=== PATIENT | female | born 1945 | race Caucasian/White ===

== ENCOUNTER → 2016-05-18 | Outpatient (CLI) | payer OTHER ==
[2016-05-18 13:05] LABS: ESTIMATED AVERAGE GLUCOSE 120 mg/dl; HA1C FLAG Normal (Normal)
[2016-05-18 13:06] LABS: BLOOD UREA NITROGEN 15 mg/dl (7-18); BUN/CREATININE RATIO 16.8 (10-20); CALCIUM 9.2 mg/dl (8.5-10.1); CARBON DIOXIDE 28 mmol/L (21-32); CHLORIDE 107 mmol/L (98-107); CREATININE 0.88 mg/dl (0.60-1.20); GLUCOSE 131 mg/dl (70-99); POTASSIUM 3.7 mmol/L (3.5-5.1); SODIUM 144 mmol/L (136-145)
== END | disposition home or self-care (01) ==
LOC: C.LABPBG 09:07
PROVIDERS: ATTEND Family Medicine
DX: I10 Essential (primary) hypertension (principal); R73.01 Impaired fasting glucose; E55.9 Vitamin D deficiency, unspecified

== ENCOUNTER → 2016-06-18 | Outpatient (CLI) | payer OTHER ==
--- NOTE | 2016-06-18 16:35 | MAMMOGRAPHY REPORT ---
BILATERAL DIGITAL SCREENING MAMMOGRAM WITH CAD: 06/18/2016 CLINICAL HISTORY: Asymptomatic. History of right breast cancer status post right mastectomy with im plant reconstruction. Also with left breast implant. TECHNIQUE: Current study was also evaluated with a Computer Aided Detection (CAD) system. Bilatera l CC and MLO views including implant displaced views were obtained. COMPARISON: Comparison is made to exams dated: 06/03/2015 mammogram, 05/14/2014 mammogram, 02/09/2013 mammogram, 02/09/2012 mammogram, 02/02/2011 mammogram, and 01/30/2010 mammogram - [facility]. BREAST COMPOSITION: The tissue of both breasts is almost entirely fatty. FINDINGS: No suspicious masses, calcifications, or areas of architectural distortion are noted in t he left breast or right mastectomy bed. There has been no significant interval change compared to p rior exams. Bilateral subpectoral silicone implants are stable in appearance. Scattered bilateral benign-appearing calcifications are not significantly changed. Status post right mastectomy. IMPRESSION: ACR BI-RADS CATEGORY 2: BENIGN There is no mammographic evidence of malignancy. A 1 year screening mammogram is recommended. The pa tient will receive written notification of the results. Approximately 10% of breast cancers are not detected with mammography. A negative mammographic repor t should not delay biopsy if a clinically suggestive mass is present. Dayan Perez M.D. ah/:06/18/2016 13:48:16 Manager Social Media: Leonid GALEANO(Aj)(Cam), [facility] letter sent: Normal 1/2 BI-RADS Code: ACR BI-RADS Category 2: Benign
== END | disposition home or self-care (01) ==
LOC: C.MAMM 11:44
PROVIDERS: ATTEND Family Medicine
DX: Z12.31 Encounter for screening mammogram for malignant neoplasm of breast (principal); Z85.3 Personal history of malignant neoplasm of breast

== ENCOUNTER → 2016-06-18 | Outpatient (CLI) | payer OTHER | END | disposition home or self-care (01) | LOC: C.MAMM 11:45 | PROVIDERS: ATTEND Family Medicine | DX: M85.851 Other specified disorders of bone density and structure, right thigh (principal); M85.852 Other specified disorders of bone density and structure, left thigh; Z85.3 Personal history of malignant neoplasm of breast; Z12.31 Encounter for screening mammogram for malignant neoplasm of breast ==

== ENCOUNTER → 2016-12-18 | Outpatient (CLI) | payer OTHER ==
[2016-12-18 13:17] LABS: BLOOD UREA NITROGEN 16 mg/dl (7-18); BUN/CREATININE RATIO 18.9 (10-20); CALCIUM 8.7 mg/dl (8.5-10.1); CARBON DIOXIDE 27 mmol/L (21-32); CHLORIDE 108 mmol/L (98-107); CREATININE 0.83 mg/dl (0.60-1.20); GLUCOSE 123 mg/dl (70-99); POTASSIUM 3.5 mmol/L (3.5-5.1); SODIUM 143 mmol/L (136-145)
[2016-12-18 13:27] LABS: CHOLESTEROL 165 mg/dl (0-200); CHOLESTEROL/HDL RATIO 2.4; HDL CHOLESTEROL 68 mg/dl; LDL CHOLESTEROL CALCULATED 82 mg/dl; TRIGLYCERIDES 73 mg/dl (0-150); VERY LOW DENSITY LIPOPROT CALC 15 mg/dl
[2016-12-18 14:18] LABS: ESTIMATED AVERAGE GLUCOSE 105 mg/dl; HA1C FLAG Normal (Normal)
== END | disposition home or self-care (01) ==
LOC: C.LABPBG 09:38
PROVIDERS: ATTEND Family Medicine
DX: I10 Essential (primary) hypertension (principal); E55.9 Vitamin D deficiency, unspecified; Z85.3 Personal history of malignant neoplasm of breast; R73.01 Impaired fasting glucose

== ENCOUNTER → 2017-06-16 | Outpatient (CLI) | payer OTHER ==
[2017-06-16 13:15] LABS: HEMATOCRIT 39.6 % (37-47); HEMOGLOBIN 13.6 g/dL (12.0-16.0); MEAN CELL VOLUME 99.7 fL (80-100); MEAN CORPUSCULAR HEMOGLOBIN 34.3 pg (25-34); MEAN CORPUSCULAR HGB CONC 34.3 g/dl (32-36); MEAN PLATELET VOLUME 10.8 fL (7.4-10.4); PLATELET COUNT 191 K/uL (130-400); RED CELL DISTRIBUTION WIDTH CV 13.3 % (11.5-14.5); RED CELL DISTRIBUTION WIDTH SD 48.7 fL (36.4-46.3); WHITE BLOOD COUNT 4.07 K/uL (4.8-10.8)
[2017-06-16 13:36] LABS: BLOOD UREA NITROGEN 20 mg/dl (7-18); CARBON DIOXIDE 27 mmol/L (21-32); CREATININE 0.89 mg/dl (0.60-1.20); GLUCOSE 111 mg/dl (70-99); POTASSIUM 3.8 mmol/L (3.5-5.1); SODIUM 139 mmol/L (136-145)
== END | disposition home or self-care (01) ==
LOC: C.LABPBG 09:08
PROVIDERS: ATTEND Family Medicine
DX: I10 Essential (primary) hypertension (principal); M85.80 Other specified disorders of bone density and structure, unspecified site; R73.01 Impaired fasting glucose; E55.9 Vitamin D deficiency, unspecified

== ENCOUNTER → 2017-06-25 | Outpatient (CLI) | payer OTHER ==
--- NOTE | 2017-06-28 07:48 | MAMMOGRAPHY REPORT ---
UNILATERAL LEFT DIGITAL SCREENING MAMMOGRAM TOMOSYNTHESIS WITH CAD: 06/25/2017 CLINICAL HISTORY: Asymptomatic. Personal history of breast cancer. TECHNIQUE: Breast tomosynthesis in addition to standard 2D mammography was performed. Current study was also evaluated with a Computer Aided Detection (CAD) system. COMPARISON: Comparison is made to exams dated: 06/18/2016 mammogram, 06/03/2015 mammogram, 05/14/2014 ma mmogram, 02/09/2013 mammogram, 02/09/2012 mammogram, and 02/02/2011 mammogram - [facility]. BREAST COMPOSITION: The tissue of the left breast is almost entirely fatty. FINDINGS: There are no suspicious masses, calcifications, or areas of architectural distortion noted within the left breast. There has been no significant interval change compared to prior exams. A hannah bpectoral silicone implant is stable in appearance. Scattered benign-appearing calcifications are no t significantly changed. IMPRESSION: ACR BI-RADS CATEGORY 2: BENIGN There is no mammographic evidence of malignancy in the left breast. A 1 year screening mammogram is r ecommended. The patient will receive written notification of the results. Approximately 10% of breast cancers are not detected with mammography. A negative mammographic report should not delay biopsy if a clinically suggestive mass is present. Dayan Perez M.D. ah/:06/25/2017 14:28:04 Varnish Filterer: Leonid GALEANO(Aj)(M), [facility] letter sent: Normal 1/2 BI-RADS Code: ACR BI-RADS Category 2: Benign
== END | disposition home or self-care (01) ==
LOC: C.MAMM 13:19
PROVIDERS: ATTEND Family Medicine
DX: Z12.31 Encounter for screening mammogram for malignant neoplasm of breast (principal); Z85.3 Personal history of malignant neoplasm of breast

== ENCOUNTER 2020-10-29 06:37 | Observation (INO) ==
--- NOTE | 2020-10-11 14:54 | PAT Medication Instructions ---
Medication Instructions Date of Service October 11, 2020 Home Medications atenolol 25 mg tablet 25 mg PO QAM atenolol 50 mg tablet 50 mg PO QAM cholecalciferol (vitamin D3) 25 mcg (1,000 unit) capsule (Vitamin D3) 25 mcg PO QAM raloxifene 60 mg tablet 60 mg PO QAM spironolactone 25 mg-hydrochlorothiazide 25 mg tablet 1 tab PO QAM vitamins A,C,L-kqjy-hyhiti 14,320 unit-226 mg-200 unit capsule (PreserVision AREDS) 1 cap PO QAM ASK your prescriber and surgeon raloxifene 60 mg tablet 60 mg PO QAM STOP taking 2 weeks before surgery (or as soon as possible if surgery is within 2 weeks) vitamins A,C,E-pztr-vuoqcq 14,320 unit-226 mg-200 unit capsule (PreserVision AREDS) 1 cap PO QAM DO NOT take the morning of surgery cholecalciferol (vitamin D3) 25 mcg (1,000 unit) capsule (Vitamin D3) 25 mcg PO QAM spironolactone 25 mg-hydrochlorothiazide 25 mg tablet 1 tab PO QAM Take morning of surgery With a small sip of water, OTHERWISE NOTHING TO EAT OR DRINK AFTER MIDNIGHT: atenolol 25 mg tablet 25 mg PO QAM atenolol 50 mg tablet 50 mg PO QAM Other Notes If you have any questions please call us at [phone] or [phone] or [phone] or [phone]
--- NOTE | 2020-10-16 09:47 | Anesthesiology Consultation ---
Date of Service October 16, 2020 Assessment & Plan (1) Encounter for pre-operative examination: Chart Review Chart Review: Acceptable Risk for Surgery (pending preop Covid testing results ) and Patient seen in Pre Admission Testing Per PAT appt on 10/16/20, patient denies any recent travel or large group activities. No known Covid positive contacts or Covid related symptoms. No known Covid infection in the past 90 days. Pt is vaccinated for Covid. Preop Covid testing scheduled 10/25/20= will await results. Educated on importance of self quarantining, social distancing and wearing mask in public for the patient one week prior to surgery and after Covid testing done Teaching & Discussion Pre-Anesthesia Teaching/Discussion Notes: Instructed NPO after midnight before surgery,except medications with 15 cc of water. Medication instructions provided according to the [facility] guidelines. History Surgery Operation Date: 10/29/20 08:50 Proposed Procedures p Right Total Hip Arthroplasty - Porfirio Bustillo MD Height/Weight Height: 5 ft 4 in Weight: 72.2 kg Allergies Allergy/AdvReac Type Severity Reaction Status Date / Time No Known Allergies Allergy Verified 10/09/20 11:52 Medications Home Medications Medication Instructions Recorded Confirmed Last Taken atenolol 25 mg tablet 25 mg PO QAM 10/09/20 10/09/20 Unknown atenolol 50 mg tablet 50 mg PO QAM 10/09/20 10/09/20 Unknown cholecalciferol (vitamin D3) 25 25 mcg PO QAM 10/09/20 10/09/20 Unknown mcg (1,000 unit) capsule (Vitamin D3) raloxifene 60 mg tablet 60 mg PO QAM 10/09/20 10/09/20 Unknown spironolactone 25 1 tab PO QAM 10/09/20 10/09/20 Unknown mg-hydrochlorothiazide 25 mg tablet vitamins A,C,Q-fwzk-tqxcoo 14,320 1 cap PO QAM 10/09/20 10/09/20 Unknown unit-226 mg-200 unit capsule (PreserVision AREDS) Past Medical History Medical History History of breast cancer Rt breast 1980s - right mastectomy + chemo No limb restrictions No current issues Hypertension Impaired fasting glucose Hgb A1C 5.7 on 07/01/20 Osteoarthritis Osteopenia Exercise / Class Metabolic Activity III < 4 Walking/Shop/Light housework (one flight of stairs - no chest pain or SOB - goes slow secondary to hip pain ) Past Family History Family History Mother Dementia Grandmother (Maternal) Breast cancer Father Cancer Other No family history of adverse response to anesthesia Denies family history of Ovarian cancer Prostate cancer Myocardial infarction Colorectal cancer Past Surgical History Surgical History History of bilateral breast implants History of breast biopsy S/P right mastectomy (1979) Past Anesthesia History No Hx of Anesthesia Complications and No Family Hx of Anesthesia Complications History of PONV No Hx of PONV and No Hx of Motion Sickness Social History Smoking Status: Never smoker Do You Dip or Chew Tobacco: No Hx Alcohol Use: Yes Alcohol type: wine alcohol intake frequency: a few times a month Hx Substance Use: No substance use type: does not use Review of Systems Patient denies chest pain, shortness of breath, dyspnea on exertion, reflux, cough, wheezing, palpitations. No hx of seizures, stroke, SC, apnea/snoring. No hx of blood clots or blood transfusions Physical Exam Vital Signs VITALS BP 139/80 P 60 TEMP 98.1 SP02 98% RESP 16 Constitutional no acute distress ENMT Mouth: no TMJ clicking Thyromental Distance: > or= 3.5 Finger Breadths (3.5) Mallampati Class: III Full dentures on top and bottom Neck neck extension not limited Respiratory normal respiratory effort; no respiratory distress Auscultation: lungs clear to auscultation bilaterally; no wheezes Cardiovascular Rate/Rhythm: regular rate and regular rhythm Heart Sounds: no murmur Vessels: no carotid bruit Musculoskeletal Spine: no pain with cervical ROM Extremities: extremities normal to inspection Psychiatric Orientation: alert Lab Results Anesthesia Preop Results Results Anesthesia Widget: WBC 3.95 K/uL (4.8-10.8) L 10/16/20 Hgb 13.3 g/dL (12.0-16.0) 10/16/20 Hct 38.2 % (37-47) 10/16/20 Plt 163 K/uL (130-400) 10/16/20 Na 140 mmol/L (136-145) 10/16/20 K 3.9 mmol/L (3.5-5.1) 10/16/20 Cl 111 mmol/L (98-107) H 10/16/20 CO2 22 mmol/L (21-32) 10/16/20 BUN 16 mg/dl (7-18) 10/16/20 Creat 0.74 mg/dl (0.6-1.2) 10/16/20 Glucose Level 119 mg/dl (70-99) H 10/16/20 PT 10.4 Seconds (9.0-12.0) 10/16/20 PTT 24.5 Seconds (21.0-31.0) 10/16/20 INR 1.0 (0.9-1.1) 10/16/20 Blood Type AB Positive 10/16/20 Antibody Screen NEGATIVE 10/16/20 Testing Electrocardiogram Date: 10/16/20 Findings: + SB @ (57bpm) Incomplete RBBB. Chest X-Ray Date: 10/16/20 Minimal atelectasis or scarring at the left base. No large infiltrates or consolidative lesions. Mild diffuse prominence of pulmonary interstitium is seen bilaterally and could be chronic.
[~2020-10-29 06:37] MED LIST: ACETAMINOPHEN 500 MG TAB PO SCH; BUPIVACAINE 0.5 % 5 MG/1 ML PF 10ML VIAL ONE; FAMOTIDINE 20 MG TAB PO SCH; GABAPENTIN 300 MG CAP PO SCH; LR 500ML BOLUS, THEN 15ML/HR IV SCH; LR 60ML/HR IV SCH; METOCLOPRAMIDE HCL 10 MG TABLET PO SCH; MIDAZOLAM HCL 1 MG/ML 2ML VIAL ONE; MoRPHine SULFATE PF 1 MG/ML 10 ML AMP/VIAL ONE; TRANEXAMIC ACID 1,000 MG **IV Pre-op IV SCH; ceFAZolin 2000MG 2,000 MG/15 ML SYR IV SCH; fentaNYL citrate 100 MCG/2 ML VIAL ONE
--- NOTE | 2020-10-29 06:56 | History & Physical Bridge Note ---
Date of Service October 29, 2020 History & Physical Bridge Note I have examined the patient, reviewed the History & Physical and in the interval since the performance of the History & Physical I have noted the following changes of clinical significance: no changes noted
[2020-10-29] MEDS ORDERED: BUPIVACAINE 0.5 % 5 MG/1 ML MPF 30ML VIAL ONE (08:24)
[2020-10-29] MEDS ORDERED: EPINEPHrine INJ 1 MG/ML AMP ONE (08:24)
[2020-10-29] MEDS ORDERED: NALBUPHINE HCL INJ 10 MG/ML AMP IV PRN (08:49)
[2020-10-29] MEDS ORDERED: MoRPHine SULFATE PF 1 MG/ML 10 ML AMP/VIAL INT SPINAL ONE (08:49)
[2020-10-29] MEDS ORDERED: PROMETHAZINE HCL 25 MG in SODIUM CHLORIDE 0.9% 50 ML IV PRN (08:49)
[2020-10-29] MEDS ORDERED: NALOXONE HCL 0.08 MG in SYRINGE 1.8 ML IV PRN (08:49)
[2020-10-29] MEDS ORDERED: diphenhydrAMINE 50 MG/ML VIAL IV PRN (08:49)
[2020-10-29] MEDS ORDERED: ePHEDrine sulfate 50 MG/ML AMP IV PRN (08:49)
[2020-10-29] MEDS ORDERED: LACTATED RINGER'S 500 ML IV PRN (08:49)
[2020-10-29] MEDS ORDERED: NALOXONE HCL 0.4 MG/1 ML VIAL/CARP IV PRN (08:49)
[2020-10-29] MEDS ORDERED: ONDANSETRON INJ 2 MG/ML 2 ML VIAL IV PRN (08:49)
[2020-10-29] MEDS ORDERED: NALOXONE HCL 1 MG in SODIUM CHLORIDE 0.9% 1000ML 1,000 ML IV PRN (08:49)
[2020-10-29] MEDS ORDERED: PROPOFOL IV EMULSION 10 MG/ML 20 ML VIAL IV ONE (08:58)
[2020-10-29] MEDS ORDERED: ePHEDrine sulfate 50 MG/ML SYR ONE (09:00)
[2020-10-29] MEDS ORDERED: NO NARCOTICS OR SEDATIVES SCH (09:00)
[2020-10-29] MEDS ORDERED: DC INTRASPINAL MORPHINE SCH (09:00)
[2020-10-29] MEDS ORDERED: SODIUM CHLORIDE 0.9% 1000ML 1,000 ML IV SCH (09:00)
[2020-10-29] MEDS ORDERED: PHENYLEPHRINE 100MCG/ML 5ML SYR ONE (09:05)
--- NOTE | 2020-10-29 10:24 | Operative Report ---
Post Operative Report Pre & Post Diagnosis Operation Date: 10/29/20 08:20 Pre-Op Diagnosis: Right Hip Osteoarthritis Post-Op Diagnosis: Right Hip Osteoarthritis I identified the patient and participated in the time-out.: Yes Procedure Operation Date: 10/29/20 08:20 Actual Procedures p Right Total Hip Arthroplasty(Right) - Porfirio Bustillo MD Surgeon Porfirio Bustillo MD Farm Marketer Shashi Pablo PA-C Estimated Blood Loss 200 Findings Consistent with Post-Op Diagnosis Operative findings revealed advanced right hip DJD. She had grade 4 [id number] disease of the femoral head and acetabulum. Moderate-sized joint effusion and some moderate synovitis. Not a lot of osteophyte formation. Fluids 1000 cc Specimens Right femoral head sent for pathology. Drains None. Anesthesia Type Spinal MAC Complications none Disposition Accompanied Patient To Recovery: Yes Indications Patient is 75-year-old independent female has had a several year history of increasing right hip pain and discomfort got secondarily worse over the past year the part that she has had to resort to using a cane to get around. X-rays show advanced right hip DJD. She elected proceed with surgical treatment. Description of Procedure Operative implants consist of: 1. Biomet G7 size 50 mm acetabular shell. 2. [place] hole safety tech. 3. 6.5 cancellous acetabular screws 135 mm length and 1 to 20 mm length. 4. Highly cross-linked polyethylene liner with a 50 mm outer diameter and 36 mm inner diameter. 5. Daniel Corail size 11 KLA femoral stem. 6. +1.5/36 mm ceramic articular ball. The patient was taken to the operating, identified, placed on the operating table supine position but all contractors were properly padded. IV antibiotics tried by anesthesia team. Spinal anesthetic had been implemented in the holding area. Devries catheter was placed in sterile fashion. Patient was then placed in the left lateral decubitus position. Axillary roll was placed. A Stulberg hip positioner was used for positioning. The right hip and leg were then prepped and draped in usual sterile fashion. A posterior lateral approach to the right hip was then performed to a curvilinear incision centered over the greater trochanter. Sharp dissection was carried through subcutaneous tissue down to the IT band gluteal fascia the IT band gluteal fascia were incised longitudinally in line with skin incision. The underlying greater bursa was excised. The piriformis and external rotators were tagged and taken off the posterior aspect of the hip joint capsule. Great care was taken throughout the procedure protect the sciatic nerve at all times. Posterior capsulotomy was then performed leaving a large flap for later repair. Hip was internally rotated and dislocated. A femoral neck osteotomy cut was made with Final Cut approximately 10 mm above the lesser trochanter. Femoral head was removed and sent for pathology. The femur was retracted anteriorly. Attention drawn the acetabulum. The acetabular labrum was excised. The pulvinar fat was excised. Sequential reaming the acetabular was then performed begin with size 43 and progressing up to 49. I reamed just a little bit with a 50 reamer and then placed a 50 mm Biomet G7 acetabular cup in about 40 degrees lateral opening and 20 degrees of anteversion. It was fixed with two 6.5 cancellous acetabular screws. Trial liner was placed. Attention drawn the femur. The proximal femur was entered with a cookie-cutter followed by canal finder. I then broached beginning with size 8 and progressing up to 11. Got excellent fit at 11. Due to the good fit and the pretty good cancellous bone we elected not use a cemented implant. Calcar reamer was used smooth and off the calcar. Then trialed the hip. The +1.5/36 mm ceramic articular ball provide full stability in full extension and external rotation flexion to 9 degrees internal rotation over 50 degrees. Leg lengths seem equal and soft tissue tension was appropriate. Attention drawn to place the permanent components. All trial components were removed. An apex hole safety tech was placed. Highly cross-linked polyethylene liner was placed. A DePuy size 11 KLA femoral stem was impacted in position. Hip was located once again found to be stable. Attention drawn to closing. The wound was irrigated scope soft pulsatile lavage solution. I did inject locally with 60 cc of half percent Marcaine with epinephrine. The posterior capsule and external rotators were then repaired through drill holes in the posterior greater trochanter with #2 Tycron suture. The IT band gluteal fascia then closed with #1 PDS suture in a running fashion the subcutaneous tissue then closed with 2 layers the deep layer #1 Vicryl suture and subcutaneous tissues with 2-0 Dexon suture in a buried interrupted fashion the skin was closed skin saba. Leg was then cleaned and dried and sterile dressing both Xeroform, 4 x 4's, sterile ABD pad and foam tape was applied. Patient then transferred to the recovery room in stable condition. Patient tolerated procedure well and there were no complications. Shashi Pablo, my physician teacher assistant, was present for the entire procedure. His assistance was essential and required for appropriate patient positioning, prepping and draping, surgical exposure, performing the technical details of the operation, placement the implants, closure of the wound, and placement of the sterile bandage. I attest to the content of the Intraoperative Record and any orders documented therein. Any exceptions are noted below.
[2020-10-29] MEDS ORDERED: NON-FORMULARY MEDICATION (Amino Acids [Amino Acid] Capsule) PO SCH (11:03)
[2020-10-29] MEDS ORDERED: bisacodyL 10 MG SUPP PR PRN (11:03)
[2020-10-29] MEDS ORDERED: ALUMINUM/MAGNESIUM SUSP 30 ML UDC PO PRN (11:03)
[2020-10-29] MEDS ORDERED: TAMSULOSIN HCL 0.4 MG CAP PO PRN (11:03)
[2020-10-29] MEDS ORDERED: MAGNESIUM HYDROXIDE SUSP 30 ML UDC PO PRN (11:03)
--- NOTE | 2020-10-29 11:08 | Anesthesiology Progress Note ---
Date of Service October 29, 2020 Anesthesia Post Procedure Vital Signs Vital Signs: Temp Pulse Pulse Resp BP Pulse Ox 10/29/20 10:40 36.3 C L 79 24 111/52 L 95 10/29/20 10:30 74 18 113/51 L 100 10/29/20 10:20 69 17 114/56 L 99 10/29/20 10:14 36.0 C L 66 14 113/56 L 100 10/29/20 07:56 92 H 18 134/77 99 10/29/20 07:18 36.7 C 101 H 18 160/92 H 98 Pain Intensity Right Hip: Pain Intensity: 4 Transfer of Care Handoff Completed per policy Notes Mental Status: alert / awake / arousable Patient Amnestic to Procedure: Yes Nausea / Vomiting: adequately controlled Pain: adequately controlled Airway Patency, RR, SpO2: stable & adequate BP & HR: stable & adequate Hydration State: stable & adequate Neuraxial Anesthesia: was administered and sensory block is resolving Anesthetic Complications: no major complications apparent
[2020-10-29] MEDS: SODIUM CHLORIDE 0.9% 1000ML 1,000 ML IV SCH ×2 (11:40→21:24)
[2020-10-29] MEDS: KETOROLAC TROMETHAMINE 15 MG/ML VIAL IV SCH ×2 (12:23→17:38)
--- NOTE | 2020-10-29 14:22 | XRay Report ---
XR hip 1V RT w pelvis CLINICAL HISTORY: IN PACU - A/P PELVIS and LATERAL HIP COMPARISON: None. DISCUSSION: No definite acute fracture dislocation seen. Prosthetic right hip joint is seen. Skin saba are demonstrated. Overall evaluation is suboptimal d ue to underpenetration. IMPRESSION: Post operative changes as detailed above. ACT 112: Negative or not required by law. The above report was generated using voice recognition software. It may contain grammatical, syntax o r spelling errors. Electronically signed by: Gema Infante DO 10/29/2020 2:21 PM
[2020-10-29] MEDS: ACETAMINOPHEN 500 MG TAB PO SCH ×2 (14:58→21:22)
[2020-10-29] MEDS ORDERED: TRANEXAMIC ACID / 0.7% NACL 1,000 MG/100 ML BAG IV SCH (16:15)
[2020-10-29] MEDS: ceFAZolin 1000MG 1,000 MG/7.5 ML SYR IV SCH (17:37)
[2020-10-29] MEDS: DOCUSATE SODIUM 100 MG CAP PO SCH (21:21)
[2020-10-29] MEDS: ASPIRIN 81 MG ECTAB PO SCH (21:22)
[2020-10-29] MEDS: SENNA 8.6 MG TAB PO SCH (21:23)
[2020-10-30] MEDS: KETOROLAC TROMETHAMINE 15 MG/ML VIAL IV SCH ×5 (00:34→23:06)
[2020-10-30] MEDS: ceFAZolin 1000MG 1,000 MG/7.5 ML SYR IV SCH (00:35)
[2020-10-30] MEDS ORDERED: ONDANSETRON INJ 2 MG/ML 2 ML VIAL IV PRN (02:50)
[2020-10-30] MEDS ORDERED: traMADol HCL 50 MG TABLET PO PRN (02:50)
[2020-10-30] MEDS ORDERED: HYDROmorphone INJ 0.5 MG/0.5 ML SYR IV PRN (02:50)
[2020-10-30] MEDS ORDERED: NALOXONE HCL 0.4 MG/1 ML VIAL/CARP IV PRN (02:50)
[2020-10-30] MEDS ORDERED: METOCLOPRAMIDE HCL INJ 5 MG/ML 2 ML VIAL IV PRN (02:50)
[2020-10-30 05:33] LABS: Basophils # (auto) 0.01 K/uL (0-0.2); Basophils % (auto) 0.2 %; Eosinophils # (auto) 0.02 K/uL (0-0.5); Eosinophils % (auto) 0.4 %; Hematocrit (blood only) 28.6 % (37-47); Hemoglobin 9.6 g/dL (12.0-16.0); Immature Granulocytes # (auto) 0.01 K/uL (0.00-0.02); Immature Granulocytes % (auto) 0.2 %; Lymphocytes # (auto) 0.95 K/uL (1.2-3.4); Lymphocytes % (auto) 18.2 %; Mean Corpuscular Hemoglobin 33.8 pg (25-34); Mean Corpuscular Hgb Conc 33.6 g/dL (32-36); Mean Corpuscular Volume 100.7 fL (80-100); Mean Platelet Volume 10.4 fL (7.4-10.4); Monocytes # (auto) 0.65 K/uL (0.11-0.59); Monocytes % (auto) 12.4 %; Neutrophils # (auto) 3.59 K/uL (1.4-6.5); Neutrophils % (auto) 68.6 %; Platelet Count 103 K/uL (130-400); RDW Coefficient of Variation 13.2 % (11.5-14.5); RDW Standard Deviation 48.7 fL (36.4-46.3); Red Blood Count 2.84 M/uL (4.2-5.4); White Blood Count 5.23 K/uL (4.8-10.8)
[2020-10-30] MEDS: ACETAMINOPHEN 500 MG TAB PO SCH ×3 (05:55→21:10)
[2020-10-30 05:59] LABS: BUN Creatinine Ratio 21.7 (10-20); Calcium 6.1 mg/dl (8.5-10.1); Est GFR (African American) 90.6 ml/min; Est GFR (Non-African American) 78.1 ml/min; Potassium 3.1 mmol/L (3.5-5.1)
[2020-10-30] MEDS ORDERED: dexAMETHasone 10 MG in SYRINGE 0 ML IV SCH (08:00)
[2020-10-30] MEDS: MULTIVITAMIN TAB PO SCH (08:19)
[2020-10-30] MEDS: ASPIRIN 81 MG ECTAB PO SCH ×2 (08:19→21:09)
[2020-10-30] MEDS: ATENOLOL 25 MG TABLET PO SCH (08:20)
[2020-10-30] MEDS: SPIRONOLACTONE/HCTZ 25-25 PO SCH (08:20)
[2020-10-30] MEDS: DOCUSATE SODIUM 100 MG CAP PO SCH ×2 (08:21→21:09)
[2020-10-30] MEDS: ATENOLOL 50 MG TABLET PO SCH (08:21)
[2020-10-30] MEDS: CHOLECALCIFEROL 1,000 UNITS 25 MCG TAB PO SCH (08:21)
[2020-10-30] MEDS: RALOXIFENE HCL 60 MG TAB PO SCH (08:22)
[2020-10-30] MEDS ORDERED: POTASSIUM CHLORIDE CRTAB 20 MEQ TABCR PO ONE ×2 (14:24→20:00)
--- NOTE | 2020-10-30 14:53 | Progress Notes ---
DATE OF NOTE: 10/30/2020. SUBJECTIVE: A 75-year-old white female postoperative day 1 from right hip replacement. She is doing pretty well. Therapy has gone well. Pain is controlled. No chest pain or shortness of breath. No t feeling dizzy or lightheaded. OBJECTIVE: VITAL SIGNS: Temperature is 36.8. Vital signs are stable. GENERAL: Shows a pleasant middle-aged female. She is sitting up in her bedside chair, looks comfort able. LUNGS: Clear to auscultation. HEART: Has a regular rate and rhythm. ABDOMEN: Soft, nontender, nondistended. EXTREMITIES: Grossly neurovascularly intact except as follows. Examination of the right leg reveals the dressing to be clean, dry and intact. Leg lengths were equa l. Hip is located. Thigh is soft and supple. No drainage on the dressing. She can dorsiflex and p lantarflex her foot appropriately. LABORATORY DATA: Hemoglobin 9.6. Hematocrit 28.6. Electrolytes, potassium is low at 3.1. ASSESSMENT: A 75-year-old white female postoperative day 1 from a right hip replacement, doing well. Pain is controlled. Hip is located. She is neurologically intact. Potassium is bit low and we wi ll supplement that. PLAN: 1. DVT prophylaxis include thigh-high TEDs, SCDs, and aspirin twice a day. 2. PT, OT, weightbear as tolerated. Right total hip protocol. 3. Pain control, doing well with current pain regimen. 4. Hypokalemia. We will supplement her potassium. 5. Disposition: Plan to discharge to a rehab likely tomorrow. Job ID: [id number]
[2020-10-30] MEDS: SENNA 8.6 MG TAB PO SCH (21:09)
[2020-10-31] MEDS: KETOROLAC TROMETHAMINE 15 MG/ML VIAL IV SCH (05:29)
[2020-10-31] MEDS: ACETAMINOPHEN 500 MG TAB PO SCH (05:29)
[2020-10-31 06:39] LABS: BUN Creatinine Ratio 31.9 (10-20); Calcium 8.9 mg/dl (8.5-10.1); Creatinine Clr Calc Pharmacy 50.4 ml/min; Est GFR (African American) 70.5 ml/min; Est GFR (Non-African American) 60.9 ml/min; Potassium 5.4 mmol/L (3.5-5.1)
[2020-10-31 06:45] VITALS: BP 145/80; PULSE 81; TEMP 98.2; O2SAT 98
[2020-10-31] MEDS: CHOLECALCIFEROL 1,000 UNITS 25 MCG TAB PO SCH (07:45)
[2020-10-31] MEDS: ATENOLOL 50 MG TABLET PO SCH (07:45)
[2020-10-31] MEDS: DOCUSATE SODIUM 100 MG CAP PO SCH (07:45)
[2020-10-31] MEDS: ATENOLOL 25 MG TABLET PO SCH (07:45)
[2020-10-31] MEDS: SPIRONOLACTONE/HCTZ 25-25 PO SCH (07:45)
[2020-10-31] MEDS: ASPIRIN 81 MG ECTAB PO SCH (07:45)
[2020-10-31] MEDS: RALOXIFENE HCL 60 MG TAB PO SCH (07:46)
[2020-10-31] MEDS: MULTIVITAMIN TAB PO SCH (07:46)
--- NOTE | 2020-10-31 08:47 | Progress Notes ---
DATE OF NOTE: 10/31/2020. SUBJECTIVE: A 75-year-old white female postop day 2 from right hip replacement. She is doing well. Pain is controlled. Therapy has gone pretty well. No chest pain or shortness of breath. Not feeli ng dizzy or lightheaded. OBJECTIVE: VITAL SIGNS: Temperature is 36.8. Vital signs are stable. GENERAL: Shows a pleasant, elderly female. Sitting up in her bedside chair, looks pretty comfortabl e. EXTREMITIES: Examination of the right hip reveals the dressing to be clean, dry and intact. Leg thi gths were equal. Thigh is soft and supple. No significant drainage. She is neurologically intact. LABORATORY DATA: Potassium is now elevated up to 5.4. Sodium is normal. Rest of her electrolytes a re stable. ASSESSMENT: A 75-year-old white female postop day 2 from right hip replacement, doing pretty well. Pain is controlled. Hip is located. Potassium is overcorrected likely just correct on its own. Sod ium is improved. PLAN: 1. DVT prophylaxis include thigh-high TEDs, SCDs, and aspirin twice a day. 2. PT/OT. She can weight bear as tolerated. Right total hip protocol. 3. Pain control, doing well with current pain regimen. 4. Potassium was supplemented yesterday and actually a bit over corrected. Etiology is unclear base d on the amount of potassium given, but we will hold any further potassium at this time. 5. Disposition: Plan to discharge to rehabilitation, hopefully today if bed available. Job ID: [id number]
--- NOTE | 2020-11-01 12:03 | Discharge Summary ---
Date of Service November 01, 2020 Discharge Data Procedures Performed Operation Date: 10/29/20 08:20 Actual Procedures p Right Total Hip Arthroplasty(Right) - Porfirio Bustillo MD Hospital Course (1) Status post total hip replacement, right: This is a 75 year old patient admitted on 10/29/20 and underwent total hip arthroplasty. She tolerated the procedure well and there were no complications. Transferred to the PACU post op and later to the orthopedic floor for further care. She was given ancef for antibiotic prophylaxis. She was also given ARABELLA stockings, SCDs, and aspirin for DVT prophylaxis. Hemoglobin, hematocrit, and vital signs were monitored during her hospital stay and remained stable. Did not require any blood transfusions. She was given potassium supplement for hypokalemia. There were no complications during her hospital stay. By post op day #2 the patient was tolerating a regular diet, pain was reasonably controlled with oral pain medicine, and she was participating in physical therapy. On post op day #2 the patient was discharged home and set up with home health care. She was given printed discharge instructions including prescriptions for extra strength tylenol, aspirin, and tramadol. Continue physical therapy, weight bearing as tolerated. Continue hip precautions. Continue ARABELLA stockings. Follow up approximately 2 weeks post op or sooner if t here are problems or concerns. Coding Level of Care Code None Diagnoses Status post total hip replacement, right Z96.641
== END 2020-10-31 11:02 ==
LOC: 3E 06:37 → ASU 06:37
DX: Z79.899 Other long term (current) drug therapy; M16.11 Unilateral primary osteoarthritis, right hip; M87.851 Other osteonecrosis, right femur